=== PATIENT | female | born 1970 ===

== ENCOUNTER 2022-07-17 08:49 | Outpatient (CLI) | payer OTHER | END 2022-07-17 09:04 | disposition home or self-care (01) | LOC: MAMO-SONO 08:49 | PROVIDERS: ATTEND Obstetrics & Gynecology Gynecology | DX: N63 Unspecified lump in breast (principal); Z12.31 Encounter for screening mammogram for malignant neoplasm of breast; N64.4 Mastodynia; N60.11 Diffuse cystic mastopathy of right breast ==